=== PATIENT | female | born 1990 | race African-American/Black ===

== ENCOUNTER 2023-06-10 07:57 | Inpatient (IN) | payer BC, OTHER ==
[2023-06-10] MEDS ORDERED: ACETAMINOPHEN 1000 MG/100 ML BAG IVPB ONE (08:07)
[2023-06-10] MEDS ORDERED: ACETAMINOPHEN INJECTION 100 ML IVPB ONE (08:22)
[2023-06-10 09:16] LABS: VENOUS BASE EXCESS 0.2 mmol/L (-2-2); VENOUS O2 SATURATION 79.4 % (70-80); VENOUS PCO2 41.3 mmHg (38-52); VENOUS PH 7.4 (7.310-7.410)
[2023-06-10 09:21] LABS: BASO % 0.4 % (0-2.0); EOS % 1.2 % (0-4.5); HEMATOCRIT 39.7 % (32.4-45.2); HEMOGLOBIN 12.8 GM/dL (10.7-15.3); LYMPH % 18.1 % (8-40); MCH 27.3 pg (25.7-33.7); MCHC 32.1 g/dl (32.0-36.0); MEAN CELL VOLUME 85.1 fl (80-96); MEAN PLT VOLUME 8.6 fl (7.5-11.1); MONO % 5.6 % (3.8-10.2); NEUT % 74.7 % (42.8-82.8); PLATELET COUNT 434 10^3/uL (134-434); RBC 4.67 M/mm3 (3.60-5.2); RDW 13.6 % (11.6-15.6); WHITE BLOOD COUNT 8.9 K/mm3 (4.0-10.0)
[2023-06-10 09:31] LABS: POTASSIUM 3.5 mmol/L (3.5-5.1)
[2023-06-10 09:32] LABS: CALCIUM 7.8 mg/dL (8.5-10.1)
[2023-06-10 09:33] LABS: ALBUMIN 2.7 g/dl (3.4-5.0); BLOOD UREA NITROGEN 12.5 mg/dL (7-18)
[2023-06-10 09:36] LABS: CREATININE 0.7 mg/dL (0.55-1.3)
[2023-06-10 09:38] LABS: BILIRUBIN,TOTAL 0.2 mg/dL (0.2-1); TOT PROT 6.8 g/dl (6.4-8.2)
[2023-06-10 09:44] LABS: ACTIVATED PTT 30.6 SECONDS (25.2-36.5); INR 1.1 (0.83-1.09); PROTHROMBIN TIME (PATIENT) 12.7 SEC (9.7-13.0)
[2023-06-10] MEDS ORDERED: SODIUM CHLORIDE 0.9% 500 ML INFUS.BAG IV ONE (09:50)
[2023-06-10 11:39] LABS: URINE APPEARANCE CLEAR; URINE BILIRUBIN NEGATIVE (NEGATIVE); URINE COLOR YELLOW; URINE GLUCOSE (UA) NEGATIVE (NEGATIVE); URINE KETONE 1+ (NEGATIVE); URINE LEUK ESTERASE NEGATIVE (NEGATIVE); URINE NITRITE NEGATIVE (NEGATIVE); URINE PROTEIN NEGATIVE (NEGATIVE); URINE UROBILINOGEN 0.2 mg/dL (0.2-1.0)
[2023-06-10 11:54] LABS: POTASSIUM 4.1 mmol/L (3.5-5.1)
[2023-06-10 11:56] LABS: BLOOD UREA NITROGEN 12.8 mg/dL (7-18); CALCIUM 8.8 mg/dL (8.5-10.1)
[2023-06-10 11:57] LABS: OPIATES, URI NEGATIVE (NEGATIVE); PHENCYCLIDINE,URINE NEGATIVE (NEGATIVE); URINE BARBITURATES NEGATIVE (NEGATIVE)
[2023-06-10 11:58] LABS: COCAINE, UR NEGATIVE (NEGATIVE); URINE BENZODIAZEPINES NEGATIVE (NEGATIVE)
[2023-06-10 11:59] LABS: CREATININE 0.7 mg/dL (0.55-1.3)
[2023-06-10] MEDS ORDERED: AZITHROMYCIN IVPB 500 MG in DEXTROSE 5%-WATER - 250 ML IVPB ONE (12:10)
[2023-06-10 12:12] LABS: METHADONE, UR NEGATIVE (NEGATIVE); URINE AMPHETAMINES NEGATIVE (NEGATIVE)
[2023-06-10] MEDS ORDERED: KETOROLAC TROMETHAMINE 15 MG/ML VIAL IVPUSH ONE (12:25)
[2023-06-10] MEDS ORDERED: AZITHROMYCIN IVPB 500 MG/250 ML BAG IVPB ONE (13:32)
[2023-06-10] MEDS ORDERED: CEFTRIAXONE 1 GM/50 ML BAG ONE (13:32)
[2023-06-10] MEDS ORDERED: KETOROLAC TROMETHAMINE 15 MG/ML VIAL ONE (13:32)
[2023-06-10] MEDS ORDERED: ACETAMINOPHEN 500 MG TABLET (FP) PO PRN (13:37)
[2023-06-10 15:20] VITALS: BMI 48.5
[2023-06-10] MEDS: ACETAMINOPHEN 500 MG TABLET (FP) PO PRN (16:03)
[2023-06-10] MEDS: KETOROLAC TROMETHAMINE 15 MG/ML VIAL IVPUSH PRN (20:15)
[2023-06-10] MEDS: DOXYCYCLINE INJECTION 100 MG in DEXTROSE 5%-WATER 100 ML IVPB SCH (21:00)
[2023-06-11] MEDS: KETOROLAC TROMETHAMINE 15 MG/ML VIAL IVPUSH PRN ×2 (03:39→18:47)
[2023-06-11] MEDS ORDERED: CEFTRIAXONE 1 GM in DEXTROSE 5%-WATER - 50 ML IVPB SCH (10:00)
[2023-06-11] MEDS ORDERED: CEFTRIAXONE 1 GM in DEXTROSE 5%-WATER - 50 ML IVPB ONE (12:03)
[2023-06-11] MEDS: DOXYCYCLINE HYCLATE 100 MG CAPSULE PO SCH ×2 (13:11→18:19)
[2023-06-11 13:51] LABS: BASO % 0.2 % (0-2.0); EOS % 0.5 % (0-4.5); HEMATOCRIT 41.3 % (32.4-45.2); HEMOGLOBIN 13.8 GM/dL (10.7-15.3); LYMPH % 8.8 % (8-40); MCH 27.7 pg (25.7-33.7); MCHC 33.4 g/dl (32.0-36.0); MEAN CELL VOLUME 82.7 fl (80-96); MEAN PLT VOLUME 8.9 fl (7.5-11.1); MONO % 5.7 % (3.8-10.2); NEUT % 84.8 % (42.8-82.8); PLATELET COUNT 466 10^3/uL (134-434); RBC 4.99 M/mm3 (3.60-5.2); RDW 14.2 % (11.6-15.6); WHITE BLOOD COUNT 17.9 K/mm3 (4.0-10.0)
[2023-06-11] MEDS ORDERED: FENTANYL CITRATE/PF 50 MCG/ML VIAL ONE (14:08)
[2023-06-11] MEDS ORDERED: FENTANYL CITRATE/PF 50 MCG/ML VIAL IVPUSH ONE (14:11)
[2023-06-11 14:24] LABS: BLOOD UREA NITROGEN 7.1 mg/dL (7-18)
[2023-06-11 14:25] LABS: CALCIUM 9.1 mg/dL (8.5-10.1)
[2023-06-11 14:29] LABS: CREATININE 0.8 mg/dL (0.55-1.3)
[2023-06-11] MEDS: DOXYCYCLINE INJECTION 100 MG in DEXTROSE 5%-WATER 100 ML IVPB SCH (14:33)
[2023-06-11 16:37] LABS: BODY FLUID MONOCYTE 5 %
[2023-06-11] MEDS: ACETAMINOPHEN 500 MG TABLET (FP) PO PRN (18:39)
[2023-06-12] MEDS: KETOROLAC TROMETHAMINE 15 MG/ML VIAL IVPUSH PRN ×3 (05:31→22:16)
[2023-06-12] MEDS: DOXYCYCLINE HYCLATE 100 MG CAPSULE PO SCH ×2 (09:47→17:24)
[2023-06-12] MEDS: CEFTRIAXONE 2 GM in DEXTROSE 5%-WATER 100 ML IVPB SCH (09:47)
[2023-06-12 11:37] LABS: BASO % 0.2 % (0-2.0); EOS % 0.8 % (0-4.5); HEMATOCRIT 39.2 % (32.4-45.2); HEMOGLOBIN 12.4 GM/dL (10.7-15.3); LYMPH % 9.5 % (8-40); MCH 26.6 pg (25.7-33.7); MCHC 31.7 g/dl (32.0-36.0); MEAN CELL VOLUME 83.9 fl (80-96); MEAN PLT VOLUME 8.7 fl (7.5-11.1); MONO % 9.4 % (3.8-10.2); NEUT % 80.1 % (42.8-82.8); PLATELET COUNT 429 10^3/uL (134-434); RBC 4.67 M/mm3 (3.60-5.2); RDW 13.8 % (11.6-15.6); WHITE BLOOD COUNT 18.4 K/mm3 (4.0-10.0)
[2023-06-12 13:18] LABS: POTASSIUM 4.2 mmol/L (3.5-5.1)
[2023-06-12 13:35] LABS: ALBUMIN 2.4 g/dl (3.4-5.0)
[2023-06-12 13:36] LABS: BLOOD UREA NITROGEN 10.1 mg/dL (7-18); CREATININE 0.8 mg/dL (0.55-1.3)
[2023-06-12 13:37] LABS: BILIRUBIN,TOTAL 0.4 mg/dL (0.2-1); TOT PROT 6.5 g/dl (6.4-8.2)
[2023-06-13] MEDS: KETOROLAC TROMETHAMINE 15 MG/ML VIAL IVPUSH PRN ×4 (05:09→22:55)
[2023-06-13] MEDS: CEFTRIAXONE 2 GM in DEXTROSE 5%-WATER 100 ML IVPB SCH (10:29)
[2023-06-13] MEDS: DOXYCYCLINE HYCLATE 100 MG CAPSULE PO SCH ×2 (10:29→17:50)
[2023-06-13 11:50] LABS: BASO % 0.2 % (0-2.0); EOS % 1.9 % (0-4.5); HEMATOCRIT 36.2 % (32.4-45.2); HEMOGLOBIN 12.1 GM/dL (10.7-15.3); LYMPH % 11.7 % (8-40); MCH 27.3 pg (25.7-33.7); MCHC 33.4 g/dl (32.0-36.0); MEAN CELL VOLUME 81.8 fl (80-96); MEAN PLT VOLUME 8.8 fl (7.5-11.1); MONO % 10.2 % (3.8-10.2); PLATELET COUNT 433 10^3/uL (134-434); RBC 4.43 M/mm3 (3.60-5.2); WHITE BLOOD COUNT 13.5 K/mm3 (4.0-10.0)
[2023-06-13 12:19] LABS: POTASSIUM 3.8 mmol/L (3.5-5.1)
[2023-06-13 12:22] LABS: ALBUMIN 2.1 g/dl (3.4-5.0); BLOOD UREA NITROGEN 8.7 mg/dL (7-18); CALCIUM 8.7 mg/dL (8.5-10.1)
[2023-06-13 12:25] LABS: CREATININE 0.7 mg/dL (0.55-1.3)
[2023-06-13 12:26] LABS: BILIRUBIN,TOTAL 0.3 mg/dL (0.2-1); TOT PROT 6.4 g/dl (6.4-8.2)
[2023-06-13 15:39] LABS: HIV INTERPRETATION NEGATIVE (NEGATIVE)
[2023-06-13] MEDS: ACETAMINOPHEN 500 MG TABLET (FP) PO PRN (16:57)
[2023-06-14] MEDS: ACETAMINOPHEN 500 MG TABLET (FP) PO PRN (10:21)
[2023-06-14] MEDS: DOXYCYCLINE HYCLATE 100 MG CAPSULE PO SCH ×2 (10:21→17:20)
[2023-06-14 10:42] LABS: BASO % 0.3 % (0-2.0); EOS % 2.5 % (0-4.5); HEMATOCRIT 38.3 % (32.4-45.2); HEMOGLOBIN 13.1 GM/dL (10.7-15.3); LYMPH % 20.8 % (8-40); MCH 27.8 pg (25.7-33.7); MCHC 34.1 g/dl (32.0-36.0); MEAN CELL VOLUME 81.4 fl (80-96); MEAN PLT VOLUME 8.5 fl (7.5-11.1); NEUT % 64.4 % (42.8-82.8); PLATELET COUNT 568 10^3/uL (134-434); RBC 4.71 M/mm3 (3.60-5.2); RDW 14.1 % (11.6-15.6); WHITE BLOOD COUNT 11.6 K/mm3 (4.0-10.0)
[2023-06-14 11:27] LABS: POTASSIUM 4.6 mmol/L (3.5-5.1)
[2023-06-14] MEDS: CEFTRIAXONE 2 GM in DEXTROSE 5%-WATER 100 ML IVPB SCH (11:31)
[2023-06-14] MEDS: KETOROLAC TROMETHAMINE 15 MG/ML VIAL IVPUSH PRN (11:34)
[2023-06-14 11:35] LABS: ALBUMIN 2.4 g/dl (3.4-5.0)
[2023-06-14 11:36] LABS: BLOOD UREA NITROGEN 5.6 mg/dL (7-18)
[2023-06-14 11:37] LABS: MAGNESIUM 2.3 mg/dL (1.8-2.4)
[2023-06-14 11:38] LABS: CREATININE 0.6 mg/dL (0.55-1.3)
[2023-06-14 11:40] LABS: BILIRUBIN,TOTAL 0.3 mg/dL (0.2-1); TOT PROT 7.4 g/dl (6.4-8.2)
[2023-06-14] MEDS ORDERED: ALTEPLASE 50MG 10 MG in SODIUM CHLORIDE 40 ML IV SCH (11:45)
[2023-06-14] MEDS ORDERED: ALTEPLASE (CATHFLO) 2 MG/2 ML VIAL IVPUSH SCH ×2 (12:00→12:16)
[2023-06-14] MEDS ORDERED: ALTEPLASE IX SCH (13:00)
[2023-06-14] MEDS ORDERED: SODIUM CHLORIDE IX SCH (13:00)
[2023-06-14] MEDS: KETOROLAC TROMETHAMINE 30 MG/1 ML VIAL IVPUSH PRN ×2 (17:42→23:43)
[2023-06-15] MEDS: KETOROLAC TROMETHAMINE 30 MG/1 ML VIAL IVPUSH PRN ×3 (06:45→20:04)
[2023-06-15] MEDS: CEFTRIAXONE 2 GM in DEXTROSE 5%-WATER 100 ML IVPB SCH (10:44)
[2023-06-15] MEDS: DOXYCYCLINE HYCLATE 100 MG CAPSULE PO SCH ×2 (10:44→17:55)
[2023-06-15 11:33] LABS: HEMOGLOBIN 12.8 GM/dL (10.7-15.3); MCH 28.2 pg (25.7-33.7); MCHC 34.6 g/dl (32.0-36.0); MEAN CELL VOLUME 81.6 fl (80-96); MEAN PLT VOLUME 8.2 fl (7.5-11.1); PLATELET COUNT 603 10^3/uL (134-434); RBC 4.54 M/mm3 (3.60-5.2); RDW 14.3 % (11.6-15.6); WHITE BLOOD COUNT 9.9 K/mm3 (4.0-10.0)
[2023-06-15 11:53] LABS: POTASSIUM 4.7 mmol/L (3.5-5.1)
[2023-06-15 12:56] LABS: BLOOD UREA NITROGEN 8.2 mg/dL (7-18); CALCIUM 9.1 mg/dL (8.5-10.1)
[2023-06-15 13:00] LABS: CREATININE 0.7 mg/dL (0.55-1.3)
[2023-06-16 09:20] LABS: BASO % 0.7 % (0-2.0); EOS % 3.3 % (0-4.5); HEMATOCRIT 33.2 % (32.4-45.2); HEMOGLOBIN 11.1 GM/dL (10.7-15.3); LYMPH % 18.7 % (8-40); MCH 27.7 pg (25.7-33.7); MCHC 33.5 g/dl (32.0-36.0); MEAN CELL VOLUME 82.6 fl (80-96); MEAN PLT VOLUME 7.9 fl (7.5-11.1); MONO % 12.9 % (3.8-10.2); NEUT % 64.4 % (42.8-82.8); PLATELET COUNT 562 10^3/uL (134-434); RBC 4.01 M/mm3 (3.60-5.2); WHITE BLOOD COUNT 10.1 K/mm3 (4.0-10.0)
[2023-06-16] MEDS: KETOROLAC TROMETHAMINE 30 MG/1 ML VIAL IVPUSH PRN (10:14)
[2023-06-16] MEDS: DOXYCYCLINE HYCLATE 100 MG CAPSULE PO SCH ×2 (10:15→17:05)
[2023-06-16] MEDS: CEFTRIAXONE 2 GM in DEXTROSE 5%-WATER 100 ML IVPB SCH (10:16)
[2023-06-16 10:35] LABS: POTASSIUM 5.8 mmol/L (3.5-5.1)
[2023-06-16 10:36] LABS: CALCIUM 8.2 mg/dL (8.5-10.1)
[2023-06-16 10:37] LABS: BLOOD UREA NITROGEN 6.6 mg/dL (7-18)
[2023-06-16 10:40] LABS: CREATININE 0.6 mg/dL (0.55-1.3)
[2023-06-16] MEDS ORDERED: SODIUM CHLORIDE IX ONE (11:00)
[2023-06-16] MEDS ORDERED: ALTEPLASE IX ONE (11:00)
[2023-06-16] MEDS: KETOROLAC TROMETHAMINE 30 MG/1 ML VIAL IVPUSH SCH (19:20)
[2023-06-17] MEDS: KETOROLAC TROMETHAMINE 30 MG/1 ML VIAL IVPUSH SCH ×3 (03:25→19:58)
[2023-06-17] MEDS ORDERED: traMADol HCL 50 MG TABLET PO PRN (07:54)
[2023-06-17] MEDS ORDERED: oxyCODONE HCL 5 MG TABLET PO PRN (07:54)
[2023-06-17 09:42] LABS: BASO % 0.8 % (0-2.0); HEMATOCRIT 32.8 % (32.4-45.2); HEMOGLOBIN 10.9 GM/dL (10.7-15.3); LYMPH % 23.7 % (8-40); MCH 27.5 pg (25.7-33.7); MCHC 33.2 g/dl (32.0-36.0); MEAN PLT VOLUME 7.7 fl (7.5-11.1); MONO % 11.7 % (3.8-10.2); NEUT % 59.8 % (42.8-82.8); PLATELET COUNT 581 10^3/uL (134-434); RBC 3.94 M/mm3 (3.60-5.2); RDW 14.2 % (11.6-15.6); WHITE BLOOD COUNT 9.8 K/mm3 (4.0-10.0)
[2023-06-17 09:59] LABS: POTASSIUM 4.5 mmol/L (3.5-5.1)
[2023-06-17 10:01] LABS: CALCIUM 8.3 mg/dL (8.5-10.1)
[2023-06-17 10:02] LABS: BLOOD UREA NITROGEN 6.2 mg/dL (7-18)
[2023-06-17 10:05] LABS: CREATININE 0.5 mg/dL (0.55-1.3)
[2023-06-17] MEDS: DOXYCYCLINE HYCLATE 100 MG CAPSULE PO SCH ×2 (10:23→18:10)
[2023-06-17] MEDS: DOCUSATE SODIUM 100 MG CAPSULE (FP) PO SCH ×2 (10:23→21:11)
[2023-06-17] MEDS: CEFTRIAXONE 2 GM in DEXTROSE 5%-WATER 100 ML IVPB SCH (10:24)
[2023-06-17] MEDS: ACETAMINOPHEN 500 MG TABLET (FP) PO SCH ×2 (12:06→18:10)
[2023-06-18] MEDS: ACETAMINOPHEN 500 MG TABLET (FP) PO SCH ×4 (00:46→18:29)
[2023-06-18] MEDS: KETOROLAC TROMETHAMINE 30 MG/1 ML VIAL IVPUSH SCH ×3 (03:48→18:29)
[2023-06-18 06:16] VITALS: RESP 18
[2023-06-18 09:50] LABS: BASO % 0.9 % (0-2.0); HEMATOCRIT 34.1 % (32.4-45.2); HEMOGLOBIN 11.1 GM/dL (10.7-15.3); MCH 27.4 pg (25.7-33.7); MCHC 32.6 g/dl (32.0-36.0); MEAN CELL VOLUME 83.9 fl (80-96); MEAN PLT VOLUME 7.8 fl (7.5-11.1); MONO % 9.8 % (3.8-10.2); NEUT % 56.3 % (42.8-82.8); PLATELET COUNT 649 10^3/uL (134-434); RBC 4.06 M/mm3 (3.60-5.2); RDW 14.1 % (11.6-15.6)
[2023-06-18 10:08] LABS: POTASSIUM 5.4 mmol/L (3.5-5.1)
[2023-06-18 10:12] LABS: CALCIUM 8.4 mg/dL (8.5-10.1)
[2023-06-18 10:13] LABS: BLOOD UREA NITROGEN 6.9 mg/dL (7-18)
[2023-06-18 10:16] LABS: CREATININE 0.6 mg/dL (0.55-1.3)
[2023-06-18] MEDS: DOCUSATE SODIUM 100 MG CAPSULE (FP) PO SCH ×2 (11:12→21:55)
[2023-06-18] MEDS: DOXYCYCLINE HYCLATE 100 MG CAPSULE PO SCH ×2 (11:13→18:29)
[2023-06-18] MEDS: CEFTRIAXONE 2 GM in DEXTROSE 5%-WATER 100 ML IVPB SCH (12:23)
[2023-06-18] MEDS ORDERED: KETOROLAC TROMETHAMINE 30 MG/1 ML VIAL IM ONE (13:15)
[2023-06-19] MEDS: KETOROLAC TROMETHAMINE 30 MG/1 ML VIAL IVPUSH SCH ×3 (03:53→19:00)
[2023-06-19] MEDS ORDERED: ALTEPLASE IX SCH (08:00)
[2023-06-19] MEDS ORDERED: SODIUM CHLORIDE IX SCH (08:00)
[2023-06-19] MEDS ORDERED: LIDOCAINE HCL 1%, 10 MG/ML (20ML VIAL) INF ONE (09:58)
[2023-06-19] MEDS: DOCUSATE SODIUM 100 MG CAPSULE (FP) PO SCH ×2 (11:02→22:26)
[2023-06-19] MEDS: DOXYCYCLINE HYCLATE 100 MG CAPSULE PO SCH ×2 (11:02→18:23)
[2023-06-19 11:06] LABS: EOS % 2.9 % (0-4.5); HEMOGLOBIN 11.9 GM/dL (10.7-15.3); LYMPH % 28.9 % (8-40); MCH 28.2 pg (25.7-33.7); MCHC 34.9 g/dl (32.0-36.0); MEAN CELL VOLUME 80.7 fl (80-96); MEAN PLT VOLUME 7.3 fl (7.5-11.1); MONO % 7.7 % (3.8-10.2); NEUT % 59.5 % (42.8-82.8); PLATELET COUNT 713 10^3/uL (134-434); RBC 4.21 M/mm3 (3.60-5.2); RDW 14.4 % (11.6-15.6); WHITE BLOOD COUNT 7.2 K/mm3 (4.0-10.0)
[2023-06-19 11:25] LABS: POTASSIUM 4.4 mmol/L (3.5-5.1)
[2023-06-19 11:35] LABS: BLOOD UREA NITROGEN 11.2 mg/dL (7-18)
[2023-06-19 11:38] LABS: CREATININE 0.7 mg/dL (0.55-1.3)
[2023-06-19] MEDS: CEFTRIAXONE 2 GM in DEXTROSE 5%-WATER 100 ML IVPB SCH (11:52)
[2023-06-19] MEDS ORDERED: morphine SULFATE 4 MG/ML VIAL IVPUSH ONE ×3 (11:56→13:01)
[2023-06-19] MEDS ORDERED: morphine CARPU-JECT 4 MG/1 ML DISP.SYRIN IM ONE (12:59)
[2023-06-19] MEDS ORDERED: morphine SULFATE 4 MG/ML VIAL IM ONE (13:30)
[2023-06-19] MEDS ORDERED: CEFTRIAXONE 2 GM in DEXTROSE 5%-WATER 100 ML IVPB ONE (13:46)
[2023-06-19 14:07] LABS: DRVVT - 38.9 sec (0.0-47.0)
[2023-06-19] MEDS: ACETAMINOPHEN 500 MG TABLET (FP) PO SCH ×2 (18:17→18:24)
[2023-06-19] MEDS: morphine SULFATE 4 MG/ML VIAL IVPUSH PRN (22:25)
[2023-06-20] MEDS: ACETAMINOPHEN 500 MG TABLET (FP) PO SCH ×4 (00:30→17:45)
[2023-06-20] MEDS: KETOROLAC TROMETHAMINE 30 MG/1 ML VIAL IVPUSH SCH ×2 (04:13→16:52)
[2023-06-20] MEDS: morphine SULFATE 4 MG/ML VIAL IVPUSH PRN ×4 (04:15→19:49)
[2023-06-20] MEDS: DOCUSATE SODIUM 100 MG CAPSULE (FP) PO SCH ×2 (10:42→21:41)
[2023-06-20] MEDS: DOXYCYCLINE HYCLATE 100 MG CAPSULE PO SCH ×2 (10:42→17:45)
[2023-06-20] MEDS: CEFTRIAXONE 2 GM in DEXTROSE 5%-WATER 100 ML IVPB SCH (10:42)
[2023-06-20 12:41] LABS: BASO % 0.6 % (0-2.0); EOS % 1.7 % (0-4.5); HEMATOCRIT 32.1 % (32.4-45.2); HEMOGLOBIN 10.4 GM/dL (10.7-15.3); LYMPH % 26.1 % (8-40); MCH 26.6 pg (25.7-33.7); MCHC 32.4 g/dl (32.0-36.0); MEAN CELL VOLUME 82.1 fl (80-96); MEAN PLT VOLUME 7.5 fl (7.5-11.1); MONO % 10.7 % (3.8-10.2); NEUT % 60.9 % (42.8-82.8); PLATELET COUNT 694 10^3/uL (134-434); RBC 3.91 M/mm3 (3.60-5.2); RDW 14.1 % (11.6-15.6); WHITE BLOOD COUNT 7.5 K/mm3 (4.0-10.0)
[2023-06-20 13:11] LABS: POTASSIUM 4.5 mmol/L (3.5-5.1)
[2023-06-20 13:14] LABS: CALCIUM 8.6 mg/dL (8.5-10.1)
[2023-06-20 13:15] LABS: ALBUMIN 2.1 g/dl (3.4-5.0); BLOOD UREA NITROGEN 8.2 mg/dL (7-18)
[2023-06-20 13:17] LABS: CREATININE 0.7 mg/dL (0.55-1.3); PHOSPHOROUS 4.6 mg/dL (2.5-4.9)
[2023-06-20 13:18] LABS: BILIRUBIN,TOTAL 0.2 mg/dL (0.2-1); TOT PROT 6.6 g/dl (6.4-8.2)
[2023-06-21] MEDS: ACETAMINOPHEN 500 MG TABLET (FP) PO SCH ×5 (00:20→12:25)
[2023-06-21] MEDS: DOXYCYCLINE HYCLATE 100 MG CAPSULE PO SCH (09:07)
[2023-06-21] MEDS: DOCUSATE SODIUM 100 MG CAPSULE (FP) PO SCH (09:07)
[2023-06-21] MEDS: CEFTRIAXONE 2 GM in DEXTROSE 5%-WATER 100 ML IVPB SCH (09:07)
[2023-06-21 10:39] LABS: HEMATOCRIT 32.6 % (32.4-45.2); HEMOGLOBIN 10.9 GM/dL (10.7-15.3); MCH 27.5 pg (25.7-33.7); MCHC 33.4 g/dl (32.0-36.0); MEAN CELL VOLUME 82.4 fl (80-96); MEAN PLT VOLUME 7.5 fl (7.5-11.1); PLATELET COUNT 737 10^3/uL (134-434); RBC 3.96 M/mm3 (3.60-5.2); RDW 13.9 % (11.6-15.6); WHITE BLOOD COUNT 7.2 K/mm3 (4.0-10.0)
[2023-06-21 11:02] LABS: ALBUMIN 2.4 g/dl (3.4-5.0); BLOOD UREA NITROGEN 8.6 mg/dL (7-18); PHOSPHOROUS 4.8 mg/dL (2.5-4.9)
[2023-06-21 11:03] LABS: BILIRUBIN,TOTAL 0.1 mg/dL (0.2-1); TOT PROT 7.4 g/dl (6.4-8.2)
[2023-06-21 11:05] LABS: CREATININE 0.7 mg/dL (0.55-1.3)
[2023-06-21 11:06] LABS: CALCIUM 9.2 mg/dL (8.5-10.1)
[2023-06-21 11:10] LABS: MAGNESIUM 2.2 mg/dL (1.8-2.4)
[2023-06-21 11:22] LABS: POTASSIUM 4.7 mmol/L (3.5-5.1)
[2023-06-21 14:12] VITALS: BP 145/79; PULSE 94; TEMP 98
== END 2023-06-21 15:39 | disposition home or self-care (01) | DRG 186 ==
LOC: JER 07:57 → JERBED 12:30 → J5S 14:42 → J6S 06-12 21:10
PROVIDERS: ADMIT Internal Medicine; ATTEND Internal Medicine
PROC: 0W9930Z Drainage of Right Pleural Cavity with Drainage Device, Percutaneous Approach (ICD-10-PCS; 2023-06-11)
PROC: 0WP9X0Z Removal of Drainage Device from Right Pleural Cavity, External Approach (ICD-10-PCS; principal; 2023-06-20)
DX: J90 Pleural effusion, not elsewhere classified (principal); J18.9 Pneumonia, unspecified organism; Z68.42 Body mass index [BMI] 45.0-49.9, adult; R07.89 Other chest pain; E66.01 Morbid (severe) obesity due to excess calories; R50.9 Fever, unspecified; D72.829 Elevated white blood cell count, unspecified; B97.89 Other viral agents as the cause of diseases classified elsewhere
CPT/HCPCS: 0241U-QW; 32557; 36415; 71045-TC-FY; 71046-TC-FY; 71250-TC; 71275-TC; 76604-TC; 80048; 80053; 80307; 81003; 82042; 82150; 82465; 82803; 83036; 83615; 83690; 83735; 83880; 83986; 84100; 84157; 84478; 84484; 84703; 85025; 85027; 85379; 85610; 85613; 85651; 85730; 85732; 86038; 86140; 86160; 86162; 86225; 86480; 86850; 86900; 86901; 87040; 87070; 87075; 87081; 87086; 87102; 87116; 87205; 87206; 87210; 87389; 87899; 88108; 88305-TC; 93005; 93010; 94010; 99285-25; C1729; J2997